=== PATIENT | female | born 1970 | race Caucasian/White ===

== ENCOUNTER → 2017-04-07 | Outpatient (CLI) | payer BC | END | disposition home or self-care (01) | LOC: KCIC 13:07 | DX: R05 Cough (principal) | CPT/HCPCS: 71046 ==

== ENCOUNTER → 2018-03-15 | Outpatient (CLI) | payer BC ==
[~2018-03-15] MED LIST: FAMO20TA5 PO; GADOBUTROL 10 MMOL/10 ML VIAL IV ONE; OMEP20CA9 PO
--- NOTE | 2018-03-15 16:43 | KCIC ---
Examination: ABDOMEN WO/W CONTRAST History: Epigastric pain. Abnormal ultrasound exam of the abdomen. Liver lesion. Comparison/Correlation: 12/09/2017 complete abdominal ultrasound exam Findings: Multisequence axial and coronal images of the upper abdomen were obtained. Following 12 cc Gadavist IV, additional imaging was performed. Exam was performed according to hepatic protocol. Within the right hepatic lobe segment 8, there is a well-circumscribed 1.9 cm x 1.2 cm x 1.1 cm lesion which is of high signal on long TR images. Delayed filling in of contrast is noted. No additional hepatic lesions. Spleen, pancreas, adrenal glands and kidneys are normal. Gallbladder is normal. No enlarged upper abdominal lymph nodes. No upper abdominal ascites. Impression: Right hepatic hemangioma. Electronically signed by: Thiago Flynn MD (03/15/2018 4:39 PM) [id number]
== END | disposition home or self-care (01) ==
LOC: KCIC MRI 14:02
PROVIDERS: ATTEND Family Medicine
DX: D18.03 Hemangioma of intra-abdominal structures (principal); K76.89 Other specified diseases of liver
CPT/HCPCS: 74183; A9585